=== PATIENT | female | born 1975 | race American Indian/Alaskan Native ===

== ENCOUNTER 2021-09-05 15:59 | Emergency (ER) | payer OTHER ==
[2021-09-05 16:13] VITALS: BP 185/108
[2021-09-05] MEDS ORDERED: KETOROLAC 60 MG/2 ML INJ IM ONE (17:37)
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
== END 2021-09-05 18:45 | disposition home or self-care (01) ==
LOC: ED 15:59
DX: M54.2 Cervicalgia (principal); M54.50 Low back pain, unspecified; V89.2XXA Person injured in unspecified motor-vehicle accident, traffic, initial encounter; Y93.89 Activity, other specified; Y92.488 Other paved roadways as the place of occurrence of the external cause; Y99.8 Other external cause status
CPT/HCPCS: 96372; 99282; J1885